=== PATIENT | female | born 1990 | race African-American/Black ===

== ENCOUNTER 2016-10-16 06:34 | Emergency (ER) | payer SELFPAY ==
--- NOTE | ~2016-10-16 | CT2 ---
[facility] A Service of [facility] RADIOLOGY TEXT RESULTS PATIENT: JERSEY COSTELLO LOCATION: [facility] : [birth year] UNIT #: [id number] AGE: [address]: Gavin Hankins MD SEX: F ORDER DR: [id number] [facility] [address] [place], [place] [address] [id number] E MR#: [id number] Acc #: [id number] NAME: JERSEY COSTELLO : 1990 SEX: F STUDY DATE/TIME: 10/16/2016 8:22 UNIT: [facility] ROOM: STUDY DESCRIPTION: CT Abd and Pelv W Cont Attending Physician: Gavin Hankins M.D. Ordering Physician: Gavin Hankins M.D. Primary Care Physician: Primary Care Physician No MEDICAL IMAGING REPORT This report is preliminary unless electronic signature is present EXAM CT abdomen and pelvis with contrast INDICATION Vomiting, lower abdominal pain since 02:30 a.m. this morning. PROCEDURE Contrast-enhanced CT of the abdomen and pelvis. COMPARISON None TECHNIQUE This CT exam was performed with one or more of the following radiation dose reduction techniques: automatic exposure control, adjustment of mA and/or kV according to patient size, and iterative reconstruction. FINDINGS ABDOMEN WITH CONTRAST: Included lung bases are clear. There is a 9.0 mm indeterminate lesion subcapsular segment 8. Otherwise liver is normal. The spleen, kidneys, adrenal glands, pancreas, gallbladder unremarkable. The bowel loops are nondilated. No appreciable abdominal mass. The appendix is not clearly seen on this study. No definite pericecal inflammation. PELVIS WITH CONTRAST: There may be a small amount of fluid in the pelvis within physiologic limits. No pelvic mass. No aggressive appearing bone lesion. IMPRESSION 1. No definite acute findings. 2. Appendix is not well seen on this study. No appreciable pericecal [facility] A Service of [facility] RADIOLOGY TEXT RESULTS PATIENT: JERSEY COSTELLO LOCATION: [facility] : [birth year] UNIT #: [id number] AGE: [address]: Gavin Hankins MD SEX: F ORDER DR: augustus. 3. A 9.0 mm indeterminate lesion in segment 8 of the liver. Given the patient's age and in the absence of any known malignancy, it probably represents a small hemangioma. It could be further characterized with non-emergent MRI if desired clinically. Dictated by... Jacobo King M.D. THIS IS AN ELECTRONICALLY VERIFIED REPORT Jacobo King M.D. at 10/16/2016 3:55 PM Too TD: 10/16/2016 09:54 JOB #: [id number] MEDICAL IMAGING REPORT Page 1 of 1 COPY
[2016-10-16 06:40] LABS: BASOPHIL% 0.5 % (0-2.5); EOSINOPHIL# 0.1 X10e3 (0-0.7); EOSINOPHIL% 0.8 % (0.0-7.0); HEMATOCRIT 43.4 % (35.0-45.0); HEMOGLOBIN 14.1 gm/dL (12.0-16.0); LYMPHOCYTE# 0.8 X10e3 (1.0-3.5); LYMPHOCYTE% 10.3 % (17.0-45.0); MEAN CELL VOLUME 90.1 FL (83-96); MEAN CORPUSCULAR HEMOGLOBIN 29.3 PG (28-34); MEAN CORPUSCULAR HGB CONC 32.5 g/dL (30-36); MEAN PLATELET VOLUME 10.2 FL (6.5-11.5); MONOCYTE# 0.4 X10e3 (0-1.0); MONOCYTE% 4.7 % (3.0-12.0); NEUTROPHIL# 6.7 X10e3 (1.5-7.1); NEUTROPHIL% 83.7 % (40-75); PLATELET COUNT 163 X10e3 (140-420); RED BLOOD COUNT 4.82 X10e (3.90-5.30); RED CELL DISTRIBUTION WIDTH 13.2 % (11.0-15.5); WHITE BLOOD COUNT 7.9 X10e3 (4.0-10.5)
[2016-10-16 06:41] LABS: DIFF IND NO
[2016-10-16 07:31] LABS: ALBUMIN SERUM 4.3 g/dL (3.5-5.0); BILIRUBIN, DIRECT 0.1 mg/dL (0.0-0.2); BILIRUBIN,INDIRECT 0.6 mg/dL (0.0-0.9); BILIRUBIN,TOTAL 0.7 mg/dL (0.2-2.0); CALCIUM SERUM 9.2 mg/dL (8.4-10.2); CREATININE SERUM 0.7 mg/dL (0.6-1.4); GLOM FILT RATE Estimated 140.5 mL/min (>60); POTASSIUM 3.8 mmol/L (3.5-5.1); PROTEIN TOTAL SERUM 7.5 g/dL (6.0-8.3)
[2016-10-16 08:23] LABS: URINE SOURCE CLEAN CATCH
[2016-10-16 08:27] LABS: URINE APPEARANCE CLOUDY; URINE BILIRUBIN NEG (NEG); URINE BLOOD 3+ (NEG); URINE COLOR YELLOW; URINE GLUCOSE NEG (NEG); URINE KETONE TRACE (NEG); URINE LEUKOCYTE ESTERASE 1+ (NEG); URINE NITRATE NEG (NEG); URINE PH 6.5 (5-8); URINE PROTEIN NEG (NEG); URINE SPECIFIC GRAVITY 1.027 (1.003-1.035)
[2016-10-16 08:29] LABS: CULTURE INDICATED? YES; URBCS1 AUWI INNUM /[HPF] (0-2); URINE BACTERIA AUWI NEG (NEGATIVE); URINE SQUAMOUS EPITHELIAL CELL FEW /[HPF]
[2016-10-18 14:44] LABS: CHLAMYDIA TRACH Not Detected (Not Detected); N GONOR Not Detected (Not Detected)
== END 2016-10-16 10:25 | disposition home or self-care (01) ==
LOC: CED 06:34
PROVIDERS: Emergency Medicine
DX: A59.9 Trichomoniasis, unspecified (principal); R11.2 Nausea with vomiting, unspecified
CPT/HCPCS: 36415; 74177; 80048; 80076; 81003; 82150; 83690; 84703; 85025; 87086; 87491; 87591; 87808; 87905; 96361; 96372; 96374; 96375; 96376; 99284; J0696; J2270; J2405; Q9967